=== PATIENT | male | born 1980 | race Caucasian/White ===

== ENCOUNTER 2020-10-28 09:16 | Emergency (ER) | payer MEDICAID ==
[~2020-10-28] VITALS: Ht 177.8 cm; Wt 98.0 kg
[2020-10-28] MEDS ORDERED: KETOROLAC 60MG/2ML VIAL IM ONE (10:00)
[2020-10-28 10:26] VITALS: BP 149/89
== END 2020-10-28 10:55 | disposition home or self-care (01) ==
LOC: ER 09:32
DX: S93.402A Sprain of unspecified ligament of left ankle, initial encounter (principal); X58.XXXA Exposure to other specified factors, initial encounter; Y93.89 Activity, other specified; Y92.89 Other specified places as the place of occurrence of the external cause
CPT/HCPCS: 96372; 99283; J1885

== ENCOUNTER 2022-12-10 10:05 | Emergency (ER) | payer MEDICAID ==
[~2022-12-10] VITALS: Ht 175.3 cm; Wt 106.0 kg
[2022-12-10] MEDS ORDERED: ACET-2708 MT (13:47)
[2022-12-10] MEDS ORDERED: NAPR-681 MT (13:47)
[2022-12-10] MEDS ORDERED: ACETAMINOPHEN 325MG TABLET PO ONE (14:15)
[2022-12-10] MEDS ORDERED: KETOROLAC 30MG/ML VIAL IM ONE (14:15)
[2022-12-10 14:26] VITALS: BP 125/86
== END 2022-12-10 14:27 | disposition home or self-care (01) ==
LOC: ER 10:37
DX: M25.571 Pain in right ankle and joints of right foot (principal); G89.29 Other chronic pain
CPT/HCPCS: 73560; 73600; 93970; 96372; 99285; J1885; Z7610